=== PATIENT | male | born 1995 ===

== ENCOUNTER 2019-01-24 15:45 | Emergency (ER) | payer SELFPAY ==
[2019-01-24] MEDS ORDERED: LIDOCAINE 1% MPF 5 ML VIAL ONE (16:13)
[2019-01-24] MEDS ORDERED: TETANUS & DIPHTHERIA TOX,ADULT 0.5 ML VIAL ONE (16:16)
--- NOTE | 2019-01-24 16:31 | ER ---
Nurse's Notes [facility] Name: Jose C Loaiza Age: 23 yrs Sex: Male : 1995 Arrival Date: 01/24/2019 Time: 15:46 Bed 25 Private MD: Diagnosis: Laceration without foreign body of foot Presentation: 01/24 15:48 Presenting complaint: EMS states: Laceration at R foot. Not bleeding. But with ashtray ca1 last night around 2300-0000H. Transition of care: patient was not received from another setting of care. Complicating Factors: There are no complicating factors for this patient. Onset of symptoms was January 24, 2019 at 00:00. Risk Assessment: Do you want to hurt yourself or someone else? Patient reports no desire to harm self or others. Initial Sepsis Screen: Does the patient meet any 2 criteria? No. Patient's initial sepsis screen is negative. Does the patient have a suspected source of infection? No. Patient's initial sepsis screen is negative. Care prior to arrival: None. 15:48 Method Of Arrival: EMS: [facility] ca1 15:48 Acuity: SCOTT 4 ca1 Triage Assessment: 15:50 General: Appears in no apparent distress. comfortable, Behavior is calm, cooperative, ca1 appropriate for age. General: Pt accompanied by Police Officers. Police officers arrested just today.. Pain: Complains of pain in right foot Pain currently is 5 out of 10 on a pain scale. Injury Description: Laceration sustained to right foot is clean, 2.6 to 7.5 cm long, was sustained 12-24 hours ago. is bleeding no active bleeding noted. Historical: - Allergies: 15:50 No Known Allergies; ca1 - Home Meds: 15:50 None [Active]; ca1 - PSHx: 15:50 None; ca1 - Immunization history:: Adult Immunizations not up to date, Last tetanus immunization: unknown. - Social history:: Smoking status: Patient uses tobacco products, smokes one-half pack cigarettes per day. - Ebola Screening: : Patient negative for fever greater than or equal to 101.5 degrees Fahrenheit, and additional compatible Ebola Virus Disease symptoms Patient denies exposure to infectious person Patient denies travel to an Ebola-affected area in the 21 days before illness onset No symptoms or risks identified at this time. Screenin:08 Abuse screen: Denies threats or abuse. Denies injuries from another. Nutritional mg2 screening: No deficits noted. Tuberculosis screening: No symptoms or risk factors identified. Fall Risk None identified. Assessment: 16:08 General: Appears in no apparent distress. comfortable, Behavior is calm, cooperative. mg2 Pain: Complains of pain in right foot. Neuro: Level of Consciousness is awake, alert, obeys commands, Oriented to person, place, time, situation. Cardiovascular: Capillary refill < 3 seconds Patient's skin is warm and dry. Respiratory: Airway is patent Respiratory effort is even, unlabored, Respiratory pattern is regular, symmetrical. GI: No signs and/or symptoms were reported involving the gastrointestinal system. : No signs and/or symptoms were reported regarding the genitourinary system. EENT: No signs and/or symptoms were reported regarding the EENT system. Derm: Skin is healthy with good turgor, Skin is pink, warm \T\ dry. normal, Wound noted right foot. Musculoskeletal: Circulation, motion, and sensation intact. Capillary refill < 3 seconds. Injury Description: Laceration sustained to right foot is clean, 2.6 to 7.5 cm long, was sustained 1 day ago. is bleeding no active bleeding noted. Vital Signs: 15:50 BP 108 / 73; Pulse 74; Resp 15 S; Temp 97.6(O); Pulse Ox 99% on R/A; Weight 63.5 kg ca1 (R); Height 5 ft. 8 in. (172.72 cm) (R); Pain 5/10; 16:58 BP 110 / 80; Pulse 78; Resp 18; Temp 98; Pulse Ox 100% on R/A; Pain 0/10; mg2 15:50 Body Mass Index 21.29 (63.50 kg, 172.72 cm) ca1 ED Course: 15:46 Patient arrived in ED. ca1 15:48 Alberto Carson PA is PHCP. cp 15:48 Alirio Montez MD is Attending Physician. cp 15:49 PHCP role handed off by Alberto Carson PA kb 15:49 Glenna Encarnacion FNP-C is PHCP. kb 15:50 Triage completed. ca1 15:50 Arm band placed on right wrist. ca1 16:08 Jonathan Templeton RN is Primary Nurse. mg2 16:09 Patient has correct armband on for positive identification. mg2 16:57 Assist provider with laceration repair on right foot that was 2.5 cm. or less using 5 mg2 stitches made under local anesthesia. Set up tray. Performed by Glenna RAM Dressed with 4X4s, Neosporin, Patient tolerated well. Patient did not have IV access during this emergency room visit. Administered Medications: 16:31 Drug: Lidocaine (1 %) 1 vials {Note: given by the provider.} Volume: 5 ml; Route: mg2 Infiltration; 16:59 Follow up: Response: No adverse reaction; Marked relief of symptoms mg2 16:31 Drug: Tetanus-Diphtheria Toxoid Adult 0.5 ml {Telesales Specialist: [employer]. Exp: mg2 09/28/2020. Lot #: [id number]. } Route: IM; Site: left deltoid; 16:59 Follow up: Response: No adverse reaction mg2 Outcome: 16:30 Discharge ordered by . kb 16:58 Discharged to Law Enforcement mg2 16:58 Condition: stable 16:58 Discharge instructions given to patient, police, Instructed on discharge instructions, follow up and referral plans. wound care, Demonstrated understanding of instructions, follow-up care, wound care. 17:00 Patient left the ED. mg2 Signatures: Glenna Encarnacion, YO INTERACTIVE VIDEO TECHNICIAN-Ckb Alberto Carson PA PA cp Gardose, Michele, RN RN mg2 Kimmie Lockhart RN RN ca1
--- NOTE | 2019-01-24 16:31 | EDPHYS ---
Physician Documentation [facility] Name: Jose C Loaiza Age: 23 yrs Sex: Male : 1995 Arrival Date: 01/24/2019 Time: 15:46 Bed 25 Private MD: ED Physician Alirio Montez HPI: 01/24 16:11 This 23 yrs old Male presents to ER via EMS with complaints of Laceration To Foot. kb 16:11 The patient has a laceration related to: stepped on ashtray occurred outdoors, and kb there are no complicating factors. The injury was accidental. The laceration(s) is(are) located on the ball of right foot. Onset: The symptoms/episode began/occurred last night. Associated signs and symptoms: The patient has no apparent associated signs or symptoms. The patient has not experienced similar symptoms in the past. The patient has not recently seen a physician. PT reports he stepped on an ashtray around midnight and cut his foot. 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 Historical: - Allergies: 15:50 No Known Allergies; ca1 - Home Meds: 15:50 None [Active]; ca1 - PSHx: 15:50 None; ca1 - Immunization history:: Adult Immunizations not up to date, Last tetanus immunization: unknown. - Social history:: Smoking status: Patient uses tobacco products, smokes one-half pack cigarettes per day. - Ebola Screening: : Patient negative for fever greater than or equal to 101.5 degrees Fahrenheit, and additional compatible Ebola Virus Disease symptoms Patient denies exposure to infectious person Patient denies travel to an Ebola-affected area in the 21 days before illness onset No symptoms or risks identified at this time. ROS: 16:12 Constitutional: Negative for fever, chills, and weight loss, Cardiovascular: Negative kb for chest pain, palpitations, and edema, Respiratory: Negative for shortness of breath, cough, wheezing, and pleuritic chest pain, Abdomen/GI: Negative for abdominal pain, nausea, vomiting, diarrhea, and constipation, Back: Negative for injury and pain, MS/Extremity: Negative for injury and deformity, Neuro: Negative for headache, weakness, numbness, tingling, and seizure. 16:12 Skin: Positive for laceration(s), of the ball of right foot. Exam: 16:12 Constitutional: This is a well developed, well nourished patient who is awake, alert, kb and in no acute distress. Head/Face: Normocephalic, atraumatic. ENT: Nares patent. No nasal discharge, no septal abnormalities noted. Tympanic membranes are normal and external auditory canals are clear. Oropharynx with no redness, swelling, or masses, exudates, or evidence of obstruction, uvula midline. Mucous membranes moist. Neck: Trachea midline, no thyromegaly or masses palpated, and no cervical lymphadenopathy. Supple, full range of motion without nuchal rigidity, or vertebral point tenderness. No Meningismus. Chest/axilla: Normal chest wall appearance and motion. Nontender with no deformity. No lesions are appreciated. Cardiovascular: Regular rate and rhythm with a normal S1 and S2. No gallops, murmurs, or rubs. Normal PMI, no JVD. No pulse deficits. Respiratory: Lungs have equal breath sounds bilaterally, clear to auscultation and percussion. No rales, rhonchi or wheezes noted. No increased work of breathing, no retractions or nasal flaring. Abdomen/GI: Soft, non-tender, with normal bowel sounds. No distension or tympany. No guarding or rebound. No evidence of tenderness throughout. MS/ Extremity: Pulses equal, no cyanosis. Neurovascular intact. Full, normal range of motion. Neuro: Awake and alert, GCS 15, oriented to person, place, time, and situation. Cranial nerves II-XII grossly intact. Motor strength 5/5 in all extremities. Sensory grossly intact. Cerebellar exam normal. Normal gait. 16:12 Skin: injury, laceration(s), the wound is approximately 3 cm(s), of the ball of right foot, that can be described as clean, no foreign body, linear, without bleeding. Vital Signs: 15:50 BP 108 / 73; Pulse 74; Resp 15 S; Temp 97.6(O); Pulse Ox 99% on R/A; Weight 63.5 kg ca1 (R); Height 5 ft. 8 in. (172.72 cm) (R); Pain 5/10; 16:58 BP 110 / 80; Pulse 78; Resp 18; Temp 98; Pulse Ox 100% on R/A; Pain 0/10; mg2 15:50 Body Mass Index 21.29 (63.50 kg, 172.72 cm) ca1 Laceration: 16:29 Wound Repair of 3cm ( 1.2in ) subcutaneous laceration to ball of right foot. Linear kb shaped.. Distal neuro/vascular/tendon intact. Anesthesia: Wound infiltrated with 3 mls of 1% lidocaine. Wound prep: Extensive cleansing with hibiclenz by me, Wound irrigation with saline by me. Skin closed with 5 4-0 Prolene using interrupted sutures and sterile technique. Dressed with Neosporin, non-adherent dressing. Patient tolerated well. MDM: 15:49 Patient medically screened. cp 16:12 Data reviewed: vital signs, nurses notes. Data interpreted: Pulse oximetry: on room air kb is 99 %. Interpretation: normal. Counseling: I had a detailed discussion with the patient and/or guardian regarding: the historical points, exam findings, and any diagnostic results supporting the discharge/admit diagnosis, the need for outpatient follow up, a family practitioner, to return to the emergency department if symptoms worsen or persist or if there are any questions or concerns that arise at home. 01/24 15:49 Order name: Prolene, Sutures; Complete Time: 16:33 kb 01/24 15:49 Order name: Dressing - Wound; Complete Time: 15:58 kb 01/24 15:49 Order name: Gloves, Sterile; Complete Time: 15:58 kb 01/24 15:49 Order name: Setup Suture Tray; Complete Time: 15:58 kb Administered Medications: 16:31 Drug: Lidocaine (1 %) 1 vials {Note: given by the provider.} Volume: 5 ml; Route: mg2 Infiltration; 16:59 Follow up: Response: No adverse reaction; Marked relief of symptoms mg2 16:31 Drug: Tetanus-Diphtheria Toxoid Adult 0.5 ml {Smoking Pipe Repairer: [employer]. Exp: mg2 09/28/2020. Lot #: [id number]. } Route: IM; Site: left deltoid; 16:59 Follow up: Response: No adverse reaction mg2 Disposition: 01/24/19 16:30 Discharged to Home. Impression: Laceration without foreign body of foot. - Condition is Stable. - Discharge Instructions: Laceration Care, Adult, [id number]. - Medication Reconciliation Form, Thank You Letter, Antibiotic Education, Prescription Opioid Use form. - Follow up: Emergency Department; When: As needed; Reason: Worsening of condition. Follow up: Private Physician; When: 2 - 3 days; Reason: Recheck today's complaints, Continuance of care, Re-evaluation by your physician. Addendum: 01/25/2019 18:18 Co-signature as Attending Physician, Alirio Montez MD. g s Signatures: Glenna Encarnacion, HOT PUNCH PRESS OPERATOR-C HOT PUNCH PRESS OPERATOR-CkAlberto Mooney PA PA cp Starr, Gregory, MD MD Jonathan Templeton, CASSIA RN mg2 Kimmie Lockhart RN RN ca1 Corrections: (The following items were deleted from the chart) 01/24 17:00 16:30 01/24/2019 16:30 Discharged to Home. Impression: Laceration without foreign body mg2 of foot. Condition is Stable. Forms are Medication Reconciliation Form, Thank You Letter, Antibiotic Education, Prescription Opioid Use. Follow up: Emergency Department; When: As needed; Reason: Worsening of condition. Follow up: Private Physician; When: 2 - 3 days; Reason: Recheck today's complaints, Continuance of care, Re-evaluation by your physician. kb
== END 2019-01-24 17:00 | disposition home or self-care (01) ==
LOC: ER 15:45
PROC: 0JQQ0ZZ Repair Right Foot Subcutaneous Tissue and Fascia, Open Approach (ICD-10-PCS; principal; 2019-01-24)
DX: S91.311A Laceration without foreign body, right foot, initial encounter (principal); F17.210 Nicotine dependence, cigarettes, uncomplicated; W26.8XXA Contact with other sharp object(s), not elsewhere classified, initial encounter; Y93.02 Activity, running; Y92.9 Unspecified place or not applicable; Z23 Encounter for immunization
CPT/HCPCS: 90471; 90714; 99283

== ENCOUNTER 2019-01-27 10:11 | Emergency (ER) | payer SELFPAY ==
--- OUTSIDE RECORDS SUMMARY | 2019-01-27 10:18 | XMS REPORT ---
:1995 [facility] [place] [address] Care Team Providers Name Role Phone Unavailable Unavailable Unavailable Problems This patient has no known problems. Allergies, Adverse Reactions, Alerts This patient has no known allergies or adverse reactions. Medications This patient has no known medications.
--- NOTE | 2019-01-27 10:42 | RAD REPORT ---
EXAM DESCRIPTION: RAD - Hand Left 3 View - 01/27/2019 10:31 am CLINICAL HISTORY: Pain;Swelling COMPARISON: No comparisons FINDINGS: Soft tissue swelling is present affecting the third finger. No acute fracture or dislocati on evident.
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
== END 2019-01-27 11:31 | disposition home or self-care (01) ==
LOC: ER 10:11
DX: S60.222A Contusion of left hand, initial encounter (principal); W22.8XXA Striking against or struck by other objects, initial encounter
CPT/HCPCS: 99283